=== PATIENT | female | born 1990 | race Caucasian/White ===

== ENCOUNTER 2017-02-20 15:44 | Emergency (ER) | payer SELFPAY | END 2017-02-20 17:40 | disposition left against medical advice (07) | LOC: ER1 15:44 | DX: M79.602 Pain in left arm (principal); R55 Syncope and collapse; R51 Headache; Z53.21 Procedure and treatment not carried out due to patient leaving prior to being seen by health care provider | CPT/HCPCS: 81001; 87086; 93005 ==